=== PATIENT | female | born 1965 | race Hispanic/Latino ===

== ENCOUNTER 2017-07-24 01:23 | Emergency (ER) | payer BC, OTHER ==
[2017-07-24 01:47] VITALS: BP 141/93; PULSE 87; RESP 18; TEMP 97.5; O2SAT 94
--- NOTE | 2017-07-24 02:00 | ED PDOC ---
Arrival/HPI - General Chief Complaint: Medical Clearance Time Seen by Provider: 07/24/17 01:24 Historian: Patient - History of Present Illness Narrative History of Present Illness (Text): 07/24/17 01:58 Betty Benjamin is a 51 year old female smoker, whose past medical history includes hypertension, anxiety, and shingles, who presents to the Emergency department complaining of anxiety. Patient states she had a panic attack yesterday and notes she had a Klonopin earlier with relief. Patient states symptoms are consistent with her usual anxiety symptoms and admits to drinking alcohol earlier tonight. Patient denies any fever, chills, chest pain, shortness of breath, nausea, vomiting, diarrhea, urinary symptoms, back pain, neck pain, headache, dizziness, or any other complaints. Time/Duration: Other (tonight) Symptom Onset: Gradual Symptom Course: Unchanged Activities at Onset: Light Context: Home Past Medical History - Provider Review Nursing Documentation Reviewed: Yes - Reproductive Menopause: Yes - Cardiac Hx Cardiac Disorders: No - Pulmonary Hx Respiratory Disorders: No - Neurological Hx Neurological Disorder: No - HEENT Hx HEENT Disorder: No - Renal Hx Renal Disorder: No - Endocrine/Metabolic Hx Endocrine Disorders: No - Hematological/Oncological Hx Blood Disorders: No - Integumentary Hx Dermatological Disorder: No Other/Comment: shingles sept. - Musculoskeletal/Rheumatological Hx Musculoskeletal Disorders: No - Gastrointestinal Hx Gastrointestinal Disorders: No - Genitourinary/Gynecological Other/Comment: 2 miscarriages - Psychiatric Hx Anxiety: Yes Hx Substance Use: No - Surgical History Hx Appendectomy: Yes Family/Social History - Physician Review Nursing Documentation Reviewed: Yes Family/Social History: Unknown Family HX Smoking Status: Light Smoker < 10 Cigarettes Daily Hx Alcohol Use: No Hx Substance Use: No Allergies/Home Meds Allergies/Adverse Reactions: Allergies bee pollen Allergy (Verified 07/24/17 02:06) RASH bee venom protein (honey bee) Allergy (Verified 07/24/17 02:06) RASH ciprofloxacin [From Cipro] Allergy (Verified 07/24/17 02:06) RASH shrimp Allergy (Verified 07/24/17 02:06) RASH dust Allergy (Uncoded 07/24/17 02:06) RASH Home Medications: Home Meds Medication Instructions Recorded Confirmed Butropion 300 mg PO DAILY 07/24/17 07/24/17 Escitalopram [Lexapro] 10 mg PO 07/24/17 Escitalopram [Lexapro] 10 mg PO DAILY 07/24/17 07/24/17 Losartan [Cozaar] 100 mg PO DAILY 07/24/17 07/24/17 Lurasidone Hydrochloride [Latuda] 40 mg PO DAILY 07/24/17 07/24/17 Metoprolol Tartrate [Lopressor] 100 mg PO DAILY 07/24/17 07/24/17 Naltrexone [Revia] 50 mg PO DAILY 07/24/17 07/24/17 Naltrexone [Revia] 50 mg PO DAILY 07/24/17 07/24/17 clonazePAM [clonAZEPAM] 1 mg PO DAILY 07/24/17 07/24/17 Review of Systems - Physician Review All systems were reviewed & negative as marked: Yes - Review of Systems Constitutional: Normal. absent: Fevers Eyes: Normal ENT: Normal Respiratory: absent: SOB Cardiovascular: Normal. absent: Chest Pain Gastrointestinal: Normal. absent: Abdominal Pain, Diarrhea, Nausea, Vomiting Genitourinary Female: Normal. absent: Dysuria, Frequency, Hematuria, Urine Output Changes Musculoskeletal: Normal. absent: Back Pain, Neck Pain Skin: Normal. absent: Rash Neurological: Normal. absent: Headache, Dizziness Endocrine: Normal Hemo/Lymphatic: Normal Psychiatric: Anxiety Physical Exam Vital Signs Reviewed: Yes Vital Signs Temp Pulse Resp BP Pulse Ox 07/24/17 01:32 97.5 F L 87 18 141/93 H 94 L Temperature: Afebrile Blood Pressure: Normal Pulse: Regular Respiratory Rate: Normal Appearance: Positive for: Well-Appearing, Non-Toxic, Comfortable Pain Distress: None Mental Status: Positive for: Alert and Oriented X 3 - Systems Exam Head: Present: Atraumatic, Normocephalic Pupils: Present: PERRL Extroacular Muscles: Present: EOMI Conjunctiva: Present: Normal Mouth: Present: Moist Mucous Membranes Neck: Present: Normal Range of Motion Respiratory/Chest: Present: Clear to Auscultation, Good Air Exchange. No: Respiratory Distress, Accessory Muscle Use Cardiovascular: Present: Regular Rate and Rhythm, Normal S1, S2. No: Murmurs Abdomen: Present: Normal Bowel Sounds. No: Tenderness, Distention, Peritoneal Signs Back: Present: Normal Inspection Upper Extremity: Present: Normal Inspection. No: Cyanosis, Edema Lower Extremity: Present: Normal Inspection. No: Edema Neurological: Present: GCS=15, CN II-XII Intact, Speech Normal Skin: Present: Warm, Dry, Normal Color. No: Rashes Psychiatric: Present: Alert, Oriented x 3, Normal Insight, Normal Concentration Medical Decision Making ED Course and Treatment: 07/24/17 01:58 Impression: 51 year old female complaining of anxiety yesterday. Plan: -- Reassess and disposition Progress Notes: 07/24/17 02:30 On re-evaluation, patient feels better and is in no acute distress. Discussed plan with the patient, who expresses understanding. Patient in agreement with plan to be discharged home. Patient is stable for discharge. Patient was instructed to follow up with physician or return if symptoms worsen or new concerning symptoms arise. - Medication Orders Current Medication Orders: Discontinued Medications Guaifenesin/Dextromethorphan (Robitussin Dm) 5 ml PO STAT STA Stop: 07/24/17 02:08 Last Admin: 07/24/17 02:29 Dose: 5 ml - Scribe Statement The provider has reviewed the documentation as recorded by the Robina Romo Provider Scribe Attestation: All medical record entries made by the Scribe were at my direction and personally dictated by me. I have reviewed the chart and agree that the record accurately reflects my personal performance of the history, physical exam, medical decision making, and the department course for this patient. I have also personally directed, reviewed, and agree with the discharge instructions and disposition. Disposition/Present on Arrival - Present on Arrival Any Indicators Present on Arrival: No History of DVT/PE: No History of Uncontrolled Diabetes: No Urinary Catheter: No History of Decub. Ulcer: No History Surgical Site Infection Following: None - Disposition Have Diagnosis and Disposition been Completed?: Yes Diagnosis: Bronchitis Disposition: HOME/ ROUTINE Disposition Time: 02:30 Condition: GOOD Discharge Instructions (ExitCare): Acute Bronchitis (ED) Forms: [facility] (Ukrainian), WORK NOTE
[2017-07-24] MEDS ORDERED: guaiFENesin DM 100 mg-10 mg/5 ml UD PO STA (02:07)
== END 2017-07-24 02:40 | disposition home or self-care (01) ==
LOC: ED 01:23
DX: J40 Bronchitis, not specified as acute or chronic (principal); I10 Essential (primary) hypertension; F17.210 Nicotine dependence, cigarettes, uncomplicated

== ENCOUNTER 2018-01-18 00:22 | Emergency (ER) | payer BC ==
[2018-01-18] MEDS ORDERED: Sodium Chloride 0.9% 1,000 ML IV STA (00:46)
[2018-01-18 00:53] VITALS: RESP 17; O2SAT 98
--- NOTE | 2018-01-18 01:00 | ED PDOC ---
Arrival/HPI - General Chief Complaint: Abdominal Pain Time Seen by Provider: 01/18/18 00:26 Historian: Patient - History of Present Illness Narrative History of Present Illness (Text): 01/18/18 01:00 52 year old female, whose past medical history includes hypertension, cholelithiasis, anxiety, and shingles, presents to the emergency department complaining of worsening right upper abdominal discomfort over past couple of days.Patient states she has been taking Advil with some relief. Patient denies any fever, chills, chest pain, shortness of breath, nausea, vomiting, diarrhea, urinary symptoms, back pain, neck pain, headache, dizziness, or any other complaints. Time/Duration: Other (couple days) Symptom Course: Worsening Activities at Onset: Light Context: Home Past Medical History - Provider Review Nursing Documentation Reviewed: Yes - Infectious Disease Hx of Infectious Diseases: None - Cardiac Hx Cardiac Disorders: No Hx Hypertension: Yes - Pulmonary Hx Respiratory Disorders: No - Neurological Hx Neurological Disorder: No - HEENT Hx HEENT Disorder: No - Renal Hx Renal Disorder: No - Endocrine/Metabolic Hx Endocrine Disorders: No - Hematological/Oncological Hx Blood Disorders: No - Integumentary Hx Dermatological Disorder: No Other/Comment: shingles sept. - Musculoskeletal/Rheumatological Hx Musculoskeletal Disorders: No - Gastrointestinal Hx Gastrointestinal Disorders: No - Genitourinary/Gynecological Other/Comment: 2 miscarriages - Psychiatric Hx Anxiety: Yes Hx Substance Use: No - Surgical History Hx Appendectomy: Yes - Anesthesia Hx Anesthesia: No Family/Social History - Physician Review Nursing Documentation Reviewed: Yes Family/Social History: No Known Family HX Smoking Status: Light Smoker < 10 Cigarettes Daily Hx Alcohol Use: Yes Frequency of alcohol use: Few days per week Hx Substance Use: No Allergies/Home Meds Allergies/Adverse Reactions: Allergies bee pollen Allergy (Verified 01/18/18 01:14) RASH bee venom protein (honey bee) Allergy (Verified 01/18/18 01:14) RASH ciprofloxacin [From Cipro] Allergy (Verified 01/18/18 01:14) RASH shrimp Allergy (Verified 01/18/18 01:14) RASH dust Allergy (Uncoded 01/18/18 01:14) RASH Home Medications: Home Meds Medication Instructions Recorded Confirmed Butropion 300 mg PO DAILY 07/24/17 07/24/17 Escitalopram [Lexapro] 10 mg PO 07/24/17 Escitalopram [Lexapro] 10 mg PO DAILY 07/24/17 07/24/17 Losartan [Cozaar] 100 mg PO DAILY 07/24/17 07/24/17 Lurasidone Hydrochloride [Latuda] 40 mg PO DAILY 07/24/17 07/24/17 Metoprolol Tartrate [Lopressor] 100 mg PO DAILY 07/24/17 07/24/17 Naltrexone [Revia] 50 mg PO DAILY 07/24/17 07/24/17 Naltrexone [Revia] 50 mg PO DAILY 07/24/17 07/24/17 clonazePAM [clonAZEPAM] 1 mg PO DAILY 07/24/17 07/24/17 Review of Systems - Physician Review All systems were reviewed & negative as marked: Yes - Review of Systems Constitutional: absent: Fevers, Other (Chills) Cardiovascular: absent: Chest Pain Gastrointestinal: Abdominal Pain (Right upper abdominal dsicomfort ). absent: Diarrhea, Nausea, Vomiting Genitourinary Female: absent: Dysuria, Frequency, Hematuria Musculoskeletal: absent: Back Pain, Neck Pain Neurological: absent: Headache, Dizziness Physical Exam Vital Signs Reviewed: Yes Vital Signs Temp Pulse Resp BP Pulse Ox 01/18/18 00:53 98.3 F 68 17 129/87 98 Temperature: Afebrile Blood Pressure: Normal Pulse: Regular Respiratory Rate: Normal Appearance: Positive for: Well-Appearing, Non-Toxic, Comfortable Pain Distress: None Mental Status: Positive for: Alert and Oriented X 3 - Systems Exam Head: Present: Atraumatic, Normocephalic Pupils: Present: PERRL Extroacular Muscles: Present: EOMI Conjunctiva: Present: Normal Mouth: Present: Moist Mucous Membranes Neck: Present: Normal Range of Motion Respiratory/Chest: Present: Clear to Auscultation, Good Air Exchange. No: Respiratory Distress, Accessory Muscle Use Cardiovascular: Present: Regular Rate and Rhythm, Normal S1, S2. No: Murmurs Abdomen: Present: Tenderness (palpable tenderness to the right upper abdomen). No: Distention, Peritoneal Signs Back: Present: Normal Inspection. No: CVA Tenderness Upper Extremity: Present: Normal Inspection. No: Cyanosis, Edema Lower Extremity: Present: Normal Inspection. No: Edema Neurological: Present: GCS=15, CN II-XII Intact, Speech Normal Skin: Present: Warm, Dry, Normal Color. No: Rashes Psychiatric: Present: Alert, Oriented x 3, Normal Insight, Normal Concentration Medical Decision Making ED Course and Treatment: 01/18/18 01:00 Impression: 52 year old female presents complaining of worsening right upper abdominal discomfort over the past couple of days. Plan: -- Labs -- IV Fluids, Toradol -- Urinalysis w/ micro -- Gallbladder and Pancreas US -- Reassess and disposition Progress Notes: EXAM: US Abdomen Limited, Right Upper Quadrant Dictated and Authenticated by: Lorena Sterling MD 01/18/2018 1:27 AM IMPRESSION: There are gallstones with 1 mm gallbladder wall.There was no right upper quadrant tenderness during the sonographic examination. Correlation with patient's pain medication status is recommended. 01/18/18 02:39 On reevaluation the patient feels better and is in no acute distress. Patient requests to be discharged and states she will follow up with her doctor. I have discussed the results and plan with the patient, who expresses understanding. Patient is stable for discharge. Patient was instructed to follow up with physician/clinic or return if symptoms persist/worsen or new concerning symptoms arise. - Lab Interpretations Lab Results: 01/18/18 00:44 01/18/18 00:44 Lab Results 01/18/18 00:44: Urine Color Yellow, Urine Appearance Sl cloudy, Urine pH 6.5, Ur Specific Sulphur 1.020, Urine Protein >=300 H, Urine Glucose (UA) Negative, Urine Ketones Negative, Urine Blood Trace-intact H, Urine Nitrate Negative, Urine Bilirubin Negative, Urine Urobilinogen 0.2, Ur Leukocyte Esterase Negative , Urine RBC 0 - 2, Urine WBC 0 - 2, Ur Epithelial Cells 1 - 3, Urine Bacteria Occ 01/18/18 00:44: WBC 6.2, RBC 4.22, Hgb 15.9, Hct 44.3, MCV 105.0, MCH 37.7 H, MCHC 35.9, RDW 12.8, Plt Count 203, MPV 9.2 01/18/18 00:44: Sodium 143, Potassium 3.7, Chloride 103, Carbon Dioxide 24, Anion Gap 19, BUN 14, Creatinine 0.6 L, Est GFR ( Amer) > 60, Est GFR ( Non-Af Amer) > 60, Random Glucose 98, Calcium 9.4, Total Bilirubin 0.5, AST 89 H , ALT 85 H, Alkaline Phosphatase 71, Total Protein 8.0, Albumin 4.5, Globulin 3.4, Albumin/Globulin Ratio 1.3, Lipase 243 I have reviewed the lab results: Yes - RAD Interpretation Radiology Orders: 01/18/18 00:46 GALLBLADDER & PANCREAS [US] Stat - Medication Orders Current Medication Orders: Discontinued Medications Sodium Chloride (Sodium Chloride 0.9%) 1,000 mls @ 999 mls/hr IV .Q1H1M STA Stop: 01/18/18 01:46 Last Admin: 01/18/18 01:24 Dose: 999 mls/hr eMAR Start Stop Document 01/18/18 01:24 IT (Rec: 01/18/18 01:24 IT [id number]) Intravenous Solution Start Date 01/18/18 Start Time 01:24 Ketorolac Tromethamine (Toradol) 30 mg IVP ONCE ONE Stop: 01/18/18 00:47 Last Admin: 01/18/18 01:24 Dose: 30 mg MAR Pain Assessment Document 01/18/18 01:24 IT (Rec: 01/18/18 01:24 IT [id number]) Pain Reassessment Is this a pain reassessment? No Sleep Is patient sleeping during reassessment? No Presence of Pain Presence of Pain Yes IVP Administration Document 01/18/18 01:24 IT (Rec: 01/18/18 01:24 IT [id number]) Charges for Administration # of IVP Administrations 1 - Scribe Statement The provider has reviewed the documentation as recorded by the Robina Shelton Provider Scribe Attestation: All medical record entries made by the Robina were at my direction and personally dictated by me. I have reviewed the chart and agree that the record accurately reflects my personal performance of the history, physical exam, medical decision making, and the department course for this patient. I have also personally directed, reviewed, and agree with the discharge instructions and disposition. Disposition/Present on Arrival - Present on Arrival Any Indicators Present on Arrival: No History of DVT/PE: No History of Uncontrolled Diabetes: No Urinary Catheter: No History of Decub. Ulcer: No History Surgical Site Infection Following: None - Disposition Have Diagnosis and Disposition been Completed?: Yes Diagnosis: Cholelithiasis Disposition: HOME/ ROUTINE Disposition Time: 02:35 Patient Plan: Discharge Patient Problems: Current Active Problems Problem Status Onset Cholelithiasis Acute Condition: GOOD Discharge Instructions (ExitCare): Gallstones (DC) Additional Instructions: Avoid fatty foods/avoid alcohol/follow up with your doctor this week/any recurrent worsening symptoms return to the emergency room Forms: [facility] (Ukrainian)
[2018-01-18 01:11] LABS: PH,URINE 6.5 (4.7-8.0); URINE BILIRUBIN NEGATIVE (NEGATIVE); URINE BLOOD TRACE-INTACT (NEGATIVE); URINE GLUCOSE (UA) NEGATIVE (NEGATIVE); URINE LEUKOCYTE ESTERASE NEGATIVE Leu/uL (NEGATIVE); URINE PROTEIN >=300 mg/dL (<30 mg/dL); URINE UROBILINOGEN 0.2 E.U./dL (<1 E.U./dL)
[2018-01-18 01:12] LABS: HEMOGLOBIN 15.9 g/dL (12.0-16.0); MEAN CORPUSCULAR HEMOGLOBIN 37.7 pg (25.0-35.0); MEAN CORPUSCULAR HGB CONC 35.9 g/dl (31.0-37.0); MEAN PLATELET VOLUME 9.2 fl (7.0-11.0); RBC 4.22 10^6/uL (3.5-6.1); RED CELL DISTRIBUTION WIDTH 12.8 % (11.5-14.5); WHITE BLOOD COUNT 6.2 10^3/ul (4.5-11.0)
[2018-01-18 01:22] LABS: URINE APPEARANCE SL CLOUDY (CLEAR); URINE BACTERIA OCC (NEG); URINE COLOR YELLOW (YELLOW); URINE RBC 0 - 2 /hpf (0-2); URINE WBC 0 - 2 /hpf (0-6)
[2018-01-18 01:34] LABS: ALB/GLOB RATIO 1.3 (1.1-1.8); ALBUMIN 4.5 g/dL (3.0-4.8); ALT/SGPT 85 U/L (7-56); AST/SGOT 89 U/L (14-36); BLOOD UREA NITROGEN 14 mg/dL (7-21); CALCIUM 9.4 mg/dL (8.4-10.5); GFR AFRICAN-AMERICAN > 60; GFR NON-AFRICAN AMERICAN > 60; LIPASE 243 U/L (23-300)
[2018-01-18 02:45] VITALS: BP 132/78; PULSE 70; TEMP 98.2
--- NOTE | 2018-01-18 14:19 | US ---
Date of service: 01/18/2018 HISTORY: RU abdominal pain COMPARISON: None. TECHNIQUE: Sonographic evaluation of the right upper quadrant of the abdomen. FINDINGS: LIVER: Measures 18 cm in length. Increased echogenicity of the liver parenchyma. No mass. No intrahepatic bile duct dilatation. GALLBLADDER: Multiple layered gallstones are seen. No evidence of cholecystitis COMMON BILE DUCT: Measures 3 mm. No stones. No dilatation. PANCREAS: Unremarkable as visualized. No mass. No ductal dilatation. RIGHT KIDNEY: Measures 11.7 x 4.8 x 4.9 cm in length. Normal echogenicity. No calculus, mass, or hydronephrosis. AORTA: No aneurysmal dilatation. IVC: Unremarkable. OTHER FINDINGS: The report concurs with the preliminary [facility] report IMPRESSION: Gallstones. No evidence of cholecystitis
== END 2018-01-18 02:49 | disposition home or self-care (01) ==
LOC: ED 00:22
DX: K80.20 Calculus of gallbladder without cholecystitis without obstruction (principal)
CPT/HCPCS: 76705; 80053; 81001; 83690; 85027; 96374; 99283; J1885; J7030

== ENCOUNTER 2018-10-31 18:08 | Emergency (ER) | payer BC ==
[2018-10-31 18:32] VITALS: RESP 18; TEMP 98.4
[2018-10-31] MEDS ORDERED: Albuterol-Ipratrop 3 mg / 0.5 (3 ml) UD IH STA (18:50)
[2018-10-31] MEDS ORDERED: guaiFENesin 200 mg/10 ml Syrup UD PO ONE (18:50)
--- NOTE | 2018-10-31 19:43 | ED PDOC ---
Arrival/HPI - General Chief Complaint: Eye Problem Time Seen by Provider: 10/31/18 18:15 Historian: Patient - History of Present Illness Narrative History of Present Illness (Text): 10/31/18 19:39 Patient is a 53 year old female, whose past medical history includes hypertension, cholelithiasis, anxiety, and shingles, presents to the emergency department complaining of redness and tearing discharge to both eyes for 1 week. 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 Patient states previous eye discomfort and using 2 eye drops zylet, durezol. Patient also states having a slight productive cough. Patient denies any decrease in vision, eye pain, headache, shortness of breath, and chest pain, or any other complaint. Time/Duration: 1 week Symptom Onset: Gradual Symptom Course: Unchanged Activities at Onset: Light Past Medical History - Provider Review Nursing Documentation Reviewed: Yes - Infectious Disease Hx of Infectious Diseases: None - Cardiac Hx Cardiac Disorders: No Hx Hypertension: Yes - Pulmonary Hx Respiratory Disorders: No - Neurological Hx Neurological Disorder: No - HEENT Hx HEENT Disorder: No - Renal Hx Renal Disorder: No - Endocrine/Metabolic Hx Endocrine Disorders: No - Hematological/Oncological Hx Blood Disorders: No - Integumentary Hx Dermatological Disorder: No Other/Comment: shingles - Musculoskeletal/Rheumatological Hx Musculoskeletal Disorders: No - Gastrointestinal Hx Gastrointestinal Disorders: No - Genitourinary/Gynecological Other/Comment: 2 miscarriages - Psychiatric Hx Anxiety: Yes Hx Substance Use: No - Surgical History Hx Appendectomy: Yes - Anesthesia Hx Anesthesia: No Family/Social History - Physician Review Nursing Documentation Reviewed: Yes Family/Social History: Unknown Family HX Smoking Status: Light Smoker < 10 Cigarettes Daily Hx Alcohol Use: Yes Frequency of alcohol use: Few days per week Hx Substance Use: No Allergies/Home Meds Allergies/Adverse Reactions: Allergies bee pollen Allergy (Verified 10/31/18 18:11) RASH bee venom protein (honey bee) Allergy (Verified 10/31/18 18:11) RASH ciprofloxacin [From Cipro] Allergy (Verified 10/31/18 18:11) RASH shrimp Allergy (Verified 10/31/18 18:11) RASH dust Allergy (Uncoded 10/31/18 18:11) RASH Home Medications: Home Meds Medication Instructions Recorded Confirmed Butropion 300 mg PO DAILY 07/24/17 07/24/17 Escitalopram [Lexapro] 10 mg PO 07/24/17 Escitalopram [Lexapro] 10 mg PO DAILY 07/24/17 07/24/17 Losartan [Cozaar] 100 mg PO DAILY 07/24/17 07/24/17 Lurasidone Hydrochloride [Latuda] 40 mg PO DAILY 07/24/17 07/24/17 Metoprolol Tartrate [Lopressor] 100 mg PO DAILY 07/24/17 07/24/17 Naltrexone [Revia] 50 mg PO DAILY 07/24/17 07/24/17 Naltrexone [Revia] 50 mg PO DAILY 07/24/17 07/24/17 clonazePAM [clonAZEPAM] 1 mg PO DAILY 07/24/17 07/24/17 Review of Systems - Physician Review All systems were reviewed & negative as marked: Yes - Review of Systems Constitutional: absent: Fatigue, Fevers Eyes: Other (Redness and tearing to both eyes. ). absent: Vision Changes, Eye Pain Respiratory: Cough (Slight productive cough. ). absent: SOB Cardiovascular: absent: Chest Pain Skin: absent: Rash, Skin Lesions, Laceration Neurological: absent: Headache, Dizziness Psychiatric: absent: Anxiety, Depression Physical Exam Vital Signs Reviewed: Yes Vital Signs Temp Pulse Resp BP Pulse Ox 10/31/18 18:08 98.4 F 82 18 114/80 92 L Temperature: Afebrile Blood Pressure: Normal Pulse: Regular Respiratory Rate: Normal Appearance: Positive for: Well-Appearing, Non-Toxic, Comfortable Pain Distress: None Mental Status: Positive for: Alert and Oriented X 3 - Systems Exam Pupils: Present: PERRL Extroacular Muscles: Present: EOMI Conjunctiva: Present: Injected, Other (+Swollen eye lids. +Tearing. No ulcer, no abression, no dendritic lesion, and no foreign body to the cornea) Ears: Present: Normal, NORMAL TM. No: Erythema Mouth: Present: Moist Mucous Membranes Pharnyx: Present: Normal. No: ERYTHEMA, EXUDATE Neck: Present: Normal Range of Motion. No: Meningeal Signs, Lymphadenopathy Respiratory/Chest: Present: Rhonchi (+Scatter rhonchi. ). No: Respiratory Distress, Accessory Muscle Use, Wheezes, Decreased Breath Sounds, Rales, Retracting, Tachypneic Cardiovascular: Present: Regular Rate and Rhythm, Normal S1, S2. No: Murmurs, Irregular Rhythm, Tachycardic Upper Extremity: Present: Normal Inspection. No: Edema Lower Extremity: Present: Normal Inspection. No: Edema Neurological: Present: GCS=15, CN II-XII Intact, Speech Normal, Motor Func Grossly Intact, Normal Sensory Function Skin: Present: Warm, Dry, Normal Color. No: Rashes Psychiatric: Present: Alert, Oriented x 3, Normal Insight, Normal Concentration Medical Decision Making ED Course and Treatment: 10/31/18 19:52 Impression: 53 y.o female who presents to the emergency department complaining of of redness and tearing to both eyes. Plan: -- CXR -- Duoneb -- Guiafenesin -- Reassess and disposition Prior Visits: Notes and results from previous visits were reviewed. Patient was last seen in the emergency department on Progress Notes: CXR : NAD. Visual acuity R eye 20/70, L eye 20/50, b/l 20/50 with glasses. On reevaluation, patient reports no eye pain, no loss of vision, no chest pain or SOB. On exam, patient remains awake alert and oriented 3 in no acute distress. CXR results d/w the patient, advised to d/c zylet (tobramycin) eye drops, continue durezol, given new Rx for antibiotic eye drops. Advised to follow up with primary care physician and her eye doctor in 1-2 days without fail. Advised to take medication as prescribed. Return to the emergency room at any time for any new or worsening symptoms. Patient states she fully agrees with and understands discharge instructions. States that she agrees with the plan and disposition. Verbalized and repeated discharge instructions and plan. I have given the patient opportunity to ask any additional questions. - RAD Interpretation Radiology Orders: 10/31/18 18:50 CHEST TWO VIEWS (PA/LAT) [RAD] Stat - Medication Orders Current Medication Orders: Discontinued Medications Acetaminophen (Tylenol 325mg Tab) 975 mg PO STAT STA Stop: 10/31/18 19:27 Last Admin: 10/31/18 19:32 Dose: 975 mg MAR Pain/Vitals Document 10/31/18 19:32 KV (Rec: 10/31/18 19:32 KV [id number]) Pain Reassessment Is This A Pain ReAssessment? Yes Sleep Is patient sleeping during reassessment? No Presence of Pain Presence of Pain Yes Pain Scale Used Protocol: PSCALES Pain Scale Used Numeric Location Pain Location Body Pricer Bagger Description Constant Throbbing Intensity 4 Scale Used Numeric Albuterol/Ipratropium (Duoneb 3 Mg/0.5 Mg (3 Ml) Ud) 3 ml IH STAT STA Stop: 10/31/18 18:51 Last Admin: 10/31/18 19:06 Dose: 3 ml Guaifenesin (Robitussin) 200 mg PO ONCE ONE Stop: 10/31/18 18:51 Last Admin: 10/31/18 19:06 Dose: 200 mg - PA / HAND WORKER / Resident Statement MD/DO has reviewed & agrees with the documentation as recorded. - Scribe Statement The provider has reviewed the documentation as recorded by the Moiseibguerrero roberts All medical record entries made by the Moiseibguerrero were at my direction and personally dictated by me. I have reviewed the chart and agree that the record accurately reflects my personal performance of the history, physical exam, medical decision making, and the department course for this patient. I have also personally directed, reviewed, and agree with the discharge instructions and disposition. Disposition/Present on Arrival - Present on Arrival Any Indicators Present on Arrival: No History of DVT/PE: No History of Uncontrolled Diabetes: No Urinary Catheter: No History of Decub. Ulcer: No History Surgical Site Infection Following: None - Disposition Have Diagnosis and Disposition been Completed?: Yes Diagnosis: Conjunctivitis, Acute bronchitis Disposition: HOME/ ROUTINE Disposition Time: 20:20 Patient Plan: Discharge Condition: STABLE Discharge Instructions (ExitCare): Acute Bronchitis, Conjunctivitis ([place]) Additional Instructions: Thank you for letting us take care of you today. You were treated for acute conjunctivitis, acute bronchitis. The emergency medical care you received today was directed at your acute symptoms. If you were prescribed any medication, please fill it and take as directed. It may take several days for your symptoms to resolve. Return to the Emergency Department if your symptoms worsen, do not improve, or if you have any other problems. Please contact your doctor in 2 days for re-evaluation and follow up / or call one of the physicians/clinics you have been referred to that are listed on the Patient Visit Information form that is included in your discharge packet. Bring any paperwork you were given at discharge with you along with any medications you are taking to your follow up visit. Our treatment cannot replace ongoing medical care by a primary care provider (PCP) outside of the emergency department. Thank you for allowing the [email or web address] team to be part of your care today. If you had an X-Ray : A Radiologist will review the ED reading if any change in treatment is needed we will contact you. Prescriptions: Albuterol HFA [Ventolin HFA 90 mcg/actuation (8 g)] 2 puff IH [id number] #1 puff Azithromycin [Z-Sukhi] 250 mg PO DAILY #6 tab Guaifenesin 400 mg PO QID #20 tablet Polymyxin B Sulf/Trimethoprim [Polymyxin B-Tmp Eye Drops] 2 drop OU QID #1 bottle Referrals: FAMILY PROVIDER,NO [Primary Care Provider] - Follow up with primary Dileep Thomas MD [Staff Provider] - Follow up with primary Forms: [employer] ([place]), WORK NOTE
[2018-10-31 20:11] VITALS: BP 134/85; PULSE 71
[2018-10-31 20:17] VITALS: O2SAT 96
--- NOTE | 2018-11-01 09:39 | RAD ---
Date of service: 10/31/2018 HISTORY: cough COMPARISON: No prior. TECHNIQUE: Chest PA and lateral views FINDINGS: LUNGS: No active pulmonary disease. PLEURA: No significant pleural effusion identified. No pneumothorax apparent. CARDIOVASCULAR: Aortic atherosclerotic calcifications. Cardiomediastinal silhouette within normal limits. OSSEOUS STRUCTURES: Mild spinal degenerative changes. VISUALIZED UPPER ABDOMEN: Normal. OTHER FINDINGS: None. IMPRESSION: No active disease.
== END 2018-10-31 20:55 | disposition home or self-care (01) ==
LOC: ED 18:08
DX: J20.9 Acute bronchitis, unspecified (principal); H10.9 Unspecified conjunctivitis; I10 Essential (primary) hypertension; F17.210 Nicotine dependence, cigarettes, uncomplicated